=== PATIENT | male | born 1950 | race African-American/Black ===

== ENCOUNTER 2017-09-14 07:23 | Emergency (ER) | payer OTHER ==
[2017-09-14 07:28] VITALS: BP 163/93; BMI 27.5
--- NOTE | 2017-09-14 08:27 | RAD ---
Examination: Right hand, three views History: Pain no trauma Findings: Hip prosthesis components are anatomically related and there is no evidence for fracture or displacement. Nonacute heterotopic bone formation is noted around the femoral neck. No hardware abno rmality or fracture is seen. There is marked osteoarthritis of the left hip. Impression: Status post right JENNIFER. Osteoarthritis left hip. No acute features demonstrated. Reported By:
[2017-09-14] MEDS ORDERED: TORADOL 60 MG VIAL ONE (08:41)
[2017-09-14] MEDS ORDERED: NORFLEX INJ IM ONE (08:42)
[2017-09-14] MEDS ORDERED: NORFLEX INJ ONE (08:42)
[2017-09-14] MEDS ORDERED: TORADOL 60 MG VIAL IM ONE (08:42)
--- NOTE | 2017-09-14 08:45 | DR.GENAD ---
HPI - PCP Primary Care Physician: [email or web address] - HPI Comment HPI Comment: PAIN RADIATES TO RIGHT LEG. NO DYSURIA. RIGHT HIP PAIN ON AMBULATION. NO TRAUMA. NO FEVER. PAIN WORSE TODAY. S/P RT HIP REPLACEMENT. - Complaint/Symptoms Chief Complaint Doctors Comments: LOWER BACK PAIN ON RIGHT SIDE TIMES 3 DAYS. Chief Complaint:: patient stated he has been having right hip pain for 3 day. the pain runs down his right leg today.had a right hip replacement 6 to 7 months ago. he stated he takes oxycodone for his arthritis. - Nurses notes reviewed Nurses Notes Review: Yes - Source History Provided: Patient - Mode of Arrival Mode of Arrival: Ambulatory - Timing Onset of Chief Complaint: 09/11/17 Came on: Suddenly - Duration Duration: Constant Duration: Days - Severity Severity: Moderate PMH - PMH Past Medical History: Yes Past Medical History: Arthritis, Hypertension Past Surgical History: Yes Surgical History: Ortho Surgery Past Surgical History Comment: right hip replacement - Family History History of Family Medical Conditions: No - Social History Does patient currently use any type of tobacco product: No Have you used tobacco products in the last 12 months: No Type of Tobacco Use: None Does any household member use tobacco: No Alcohol Use: None Do you use any recreational Drugs:: No Lives With: Family Lives Where: Home - infectious screening In the last 2 months have you had wt loss of >10#?: NO Have you had fever, night sweats or hemotysis?: No Have you traveled outside the country in the last 6 months?: No Isolation: Standard ROS - Review of Systems Constitutional: No Symptoms Reported Eyes: No Symptoms Reported ENTM: No Symptoms Reported Respiratoy: No Symptoms Reported Cardiovascular: No Symptoms Reported Gastrointestinal/Abdominal: No Symptoms Reported Genitourinary: No Symptoms Reported Neurological: No Symptoms Reported Musculoskeletal: Back Pain, Right, Back, Leg Integumentary: No Symptoms Reported Hematologic/Lymphatic: No Symptoms Reported Endocrine: No Symptoms Reported All Other Systems: Reviewed and Negative PE - Vital Signs Vitals: Temperature 98.6 F Pulse Rate 68 Respiratory Rate 16 Blood Pressure 163/93 O2 Sat by Pulse Oximetry 98 - General Limitations: No Limitations General Appearance: Alert - Head Head Exam: Normal Inspection - Eyes Eye exam: Normal Appearance - ENT ENT Exam: Normal External Ear Exam External Ear Exam: Normal External Inspection TM/Canal Exam: Bilateral Normal Nose Exam: Normal Nose Exam Mouth Exam: Normal Inspection Throat Exam: Normal Inspection - Neck Neck Exam: Trachea Midline - Chest Chest Inspection: Normal Inspection - Respiratory Respiratory Exam: Normal Lung Sounds Bilat Respiratory Exam: Lower Clear to Auscultation - Cardiovascular Cardiovascular Exam: Regular Rate, Normal Rhythm, Normal Heart Sounds - Abdominal Exam Abdominal Exam: Normal Bowel Sounds. negative: Tenderness - Extremities Extremities Exam: Normal Inspection - Back Back Exam: Paraspinal Tenderness (lower back), (R) Sciatic Notch Tenderness, (R ) Straight Leg Raise - Neurologic Neurological Exam: Alert, Oriented X3 - Psychiatric Psychiatric Exam: Normal Affect, Normal Mood - Skin Skin Exam: Normal Color MDM - Differential Diagnosis Differential Diagnosis: LUMBOSACRAL STRAIN, MUSCLE SPASM, SCIATICA Course - Treatment Treatment: SEE ORDERS. PAIN IMPROVED WITH IM MEDS - Reevaluation 1st: Improved - Education/Counseling Education/Counseling: Patient, Education Educated On: Treatment, Diagnosis, Needs for Follow Up ROR - XRAY XRAY Interpreted by: Radiologist XRAY Findings: REPORT DISCUSS WITH PATIENT. - Diagnosis Discharge Problem: Low back pain Qualifiers: Chronicity: acute Back pain laterality: right Sciatica presence: with sciatica Sciatica laterality: sciatica of right side Qualified Code(s): M54.41 - Lumbago with sciatica, right side Bursitis of right hip Qualifiers: Hip bursitis location: trochanteric bursitis Qualified Code(s): M70.61 - Trochanteric bursitis, right hip Sciatica Qualifiers: Laterality: right Qualified Code(s): M54.31 - Sciatica, right side - Discharge Plan Disposition: 01 HOME, SELF-CARE Condition: Stable Prescriptions: Cyclobenzaprine HCl [FLEXERIL 10 MG *] 10 mg PO TID PRN #20 tab PRN Reason: Ibuprofen [MOTRIN TAB 800 MG *] 800 mg PO Q8H PRN #90 tab PRN Reason: Pain/Inflammation Tramadol HCl 50 mg PO Q8H #15 tablet - Follow ups/Referrals Follow ups/Referrals: [facility],None [Primary Care Provider] - 3 days - Instructions Instructions: Bursitis, [id number], Musculoskeletal Pain Additional Instructions: RETURN TO ED IF WORSE.
== END 2017-09-14 09:20 | disposition home or self-care (01) ==
LOC: ER 07:36
DX: M54.41 Lumbago with sciatica, right side (principal); M70.61 Trochanteric bursitis, right hip; M54.31 Sciatica, right side
CPT/HCPCS: 73501; 96372; 99282; J1885; J2360